=== PATIENT | female | born 1960 | race Caucasian/White ===

== ENCOUNTER 2016-10-06 17:38 | Emergency (ER) | payer MEDICARE, OTHER ==
[~2016-10-06] VITALS: Ht 160 cm; Wt 70.3 kg
[2016-10-06 19:00] VITALS: BP 145/86
== END 2016-10-06 21:15 | disposition home or self-care (01) ==
LOC: ER 17:40
DX: M54.2 Cervicalgia (principal); M25.512 Pain in left shoulder; E03.9 Hypothyroidism, unspecified; F31.9 Bipolar disorder, unspecified; F41.9 Anxiety disorder, unspecified; V49.49XA Driver injured in collision with other motor vehicles in traffic accident, initial encounter; Y93.89 Activity, other specified; Y92.89 Other specified places as the place of occurrence of the external cause; Y99.9 Unspecified external cause status
CPT/HCPCS: 72125; 73030; 99284; A4606; Z7610